=== PATIENT | male | born 1940 | race African-American/Black ===

== ENCOUNTER 2021-01-17 11:30 | Emergency (ER) | payer MEDICARE ==
[~2021-01-17] VITALS: Ht 170.2 cm; Wt 80.0 kg
[2021-01-17 12:03] VITALS: BP 129/84
== END 2021-01-17 15:21 | disposition left against medical advice (07) ==
LOC: ER 11:30
DX: R10.10 Upper abdominal pain, unspecified (principal); E11.9 Type 2 diabetes mellitus without complications; I10 Essential (primary) hypertension; Z88.6 Allergy status to analgesic agent
CPT/HCPCS: 93005; 99283

== ENCOUNTER 2022-01-03 19:07 | Emergency (ER) | payer MEDICARE ==
[~2022-01-03] VITALS: Ht 170.2 cm; Wt 78.0 kg
[2022-01-03 19:29] VITALS: BP 147/84
[2022-01-03] MEDS ORDERED: LIDOCAINE HCL 1% 20ML VIAL (Pyxis) INJ INFIL ONE (22:00)
[2022-01-03] MEDS ORDERED: AMOXICILLIN/POTASSIUM CLAVULANATE 875/125MG TAB PO ONE (22:00)
[2022-01-03] MEDS ORDERED: BACITRACIN ZINC OINT UDPKT TOP ONE (22:00)
[2022-01-03] MEDS ORDERED: ACETAMINOPHEN 325MG TABLET PO ONE (22:00)
[2022-01-03] MEDS ORDERED: TETANUS, DIPHTHERIA, PERTUSSIS VAC/PF 0.5ML (>10YR OLD) IM ONE (22:00)
[2022-01-03] MEDS ORDERED: LIDOCAINE HCL 1% 10 MG/ML 10ML VIAL INJ NR (22:30)
[2022-01-03] MEDS ORDERED: TOPUD PO (23:08)
[2022-01-03] MEDS ORDERED: AMOX1TAB16 MT (23:08)
== END 2022-01-03 23:21 | disposition home or self-care (01) ==
LOC: ER 19:07
DX: S61.451A Open bite of right hand, initial encounter (principal); W54.0XXA Bitten by dog, initial encounter; Y93.89 Activity, other specified; Y92.89 Other specified places as the place of occurrence of the external cause; Y99.8 Other external cause status; E11.9 Type 2 diabetes mellitus without complications; I10 Essential (primary) hypertension
CPT/HCPCS: 12001; 90471; 90715; 99284; J3490

== ENCOUNTER 2022-01-18 07:12 | Emergency (ER) | payer MEDICARE ==
[~2022-01-18] VITALS: Ht 175.3 cm; Wt 81.0 kg
[~2022-01-18 07:12] MED LIST: AMOX1TAB16 MT; TOPUD PO
[2022-01-18 07:16] VITALS: BP 180/77
== END 2022-01-18 12:01 | disposition home or self-care (01) ==
LOC: ER 07:12
DX: Z48.02 Encounter for removal of sutures (principal)
CPT/HCPCS: 99281